=== PATIENT | female | born 1950 | race Caucasian/White ===

== ENCOUNTER 2021-07-24 19:01 | Inpatient (IN) | payer MEDICARE ==
[~2021-07-24] VITALS: Ht 165.1 cm; Wt 89.4 kg
[2021-07-24 19:51] LABS: HEMOGLOBIN 7.4 gm/dl (12.3-15.3); RED BLOOD COUNT 3.4 M/UL (4.00-5.10); WHITE BLOOD COUNT 9.8 K/UL (4.5-11.0)
[2021-07-24 20:12] LABS: BUN/CREATININE RATIO 48 (0-10)
[2021-07-24] MEDS ORDERED: FARXIGA5 MG PO (23:48)
[2021-07-24] MEDS ORDERED: GLUCOPHAGE 500500 MG PO (23:49)
[2021-07-24] MEDS ORDERED: HYDRALAZINE HCL25 MG PO (23:49)
[2021-07-24] MEDS ORDERED: HYDROCHLOROTHIA25 MG PO (23:50)
[2021-07-24] MEDS ORDERED: AMARYL 2MG TABLE2 MG PO (23:50)
[2021-07-24] MEDS ORDERED: METOPROLOL SUCC50 MG PO (23:50)
[2021-07-24] MEDS ORDERED: BENAZEPRIL HCL20 MG PO (23:50)
[2021-07-24] MEDS ORDERED: POTASSIUM CHLO10 ME1 PO (23:50)
[2021-07-24] MEDS ORDERED: ATORVASTATIN CA20 MG PO (23:51)
[2021-07-26] MEDS ORDERED: FISH OIL 1,0001 EAC5 PO (10:17)
== END 2021-07-26 14:25 | disposition home or self-care (01) | DRG 378 ==
LOC: ER1 19:01 → PROG CARE 23:27 → CDU 23:27 → PROG CARE 07-25 00:38
PROVIDERS: Physician Assistant; Surgery; ADMIT Internal Medicine
PROC: 0DJD8ZZ Inspection of Lower Intestinal Tract, Via Natural or Artificial Opening Endoscopic (ICD-10-PCS; 2021-07-24)
PROC: 0DJ08ZZ Inspection of Upper Intestinal Tract, Via Natural or Artificial Opening Endoscopic (ICD-10-PCS; 2021-07-25)
PROC: 30233N1 Transfusion of Nonautologous Red Blood Cells into Peripheral Vein, Percutaneous Approach (ICD-10-PCS; principal; 2021-07-25 11:00)
DX: K92.2 Gastrointestinal hemorrhage, unspecified (principal); D62 Acute posthemorrhagic anemia; Z20.822 Contact with and (suspected) exposure to COVID-19; N20.0 Calculus of kidney; K63.89 Other specified diseases of intestine; E11.9 Type 2 diabetes mellitus without complications; M19.90 Unspecified osteoarthritis, unspecified site; K57.30 Diverticulosis of large intestine without perforation or abscess without bleeding; I11.0 Hypertensive heart disease with heart failure; K44.9 Diaphragmatic hernia without obstruction or gangrene; I50.9 Heart failure, unspecified; Z96.643 Presence of artificial hip joint, bilateral; Z85.038 Personal history of other malignant neoplasm of large intestine; Z90.49 Acquired absence of other specified parts of digestive tract; Z79.4 Long term (current) use of insulin; Z98.891 History of uterine scar from previous surgery; Z88.2 Allergy status to sulfonamides; Z80.1 Family history of malignant neoplasm of trachea, bronchus and lung; Z90.710 Acquired absence of both cervix and uterus
CPT/HCPCS: 36415; 36430; 80053; 81001; 82272; 82962; 83690; 85018; 85025; 85610; 85730; 86850; 86900; 86901; 86920; 96374; 99285; C9113; G0378; J2001; J2704; J7030; J7040; J7050; P9016; Q9967; U0002

== ENCOUNTER → 2021-09-23 | Outpatient (CLI) | payer MEDICARE ==
[~2021-09-23] MED LIST: AMARYL 2MG TABLE2 MG PO; ATORVASTATIN CA20 MG PO; BENAZEPRIL HCL20 MG PO; FARXIGA5 MG PO; FISH OIL 1,0001 EAC5 PO; GLUCOPHAGE 500500 MG PO; HYDRALAZINE HCL25 MG PO; HYDROCHLOROTHIA25 MG PO; METOPROLOL SUCC50 MG PO; POTASSIUM CHLO10 ME1 PO
== END ==
LOC: KOH-I 09:09
DX: T84.030A Mechanical loosening of internal right hip prosthetic joint, initial encounter (principal); T84.031A Mechanical loosening of internal left hip prosthetic joint, initial encounter
CPT/HCPCS: 73700

== ENCOUNTER → 2021-10-04 | Outpatient (CLI) | payer MEDICARE | LOC: KOH-I 13:00 | DX: M41.86 Other forms of scoliosis, lumbar region (principal); M51.36 Other intervertebral disc degeneration, lumbar region; M48.061 Spinal stenosis, lumbar region without neurogenic claudication | CPT/HCPCS: 72148 ==